=== PATIENT | female | born 1995 | race Caucasian/White ===

== ENCOUNTER 2017-02-24 08:01 | Emergency (ER) | payer OTHER ==
[2017-02-24 08:09] VITALS: BP 125/87
--- NOTE | 2017-02-24 08:58 | ERNOTE ---
Integumentary HPI - General Presenting Symptoms: rash Time Seen by Provider: 02/24/17 08:49 Source: patient Exam Limitations: no limitations - Immun/Allergies/Home Medications Immunizations: IMMUNIZATION HX Immunizations Up to Date Yes History of Influenza Vaccine No Allergies/Adverse Reactions: Allergies Allergy/AdvReac Type Severity Reaction Status Date / Time No Known Allergies Allergy Verified 02/24/17 08:09 Home Medications: HOME MEDICATIONS Control 05/31/16 [Last Taken Unknown] Famotidine [Pepcid] 20 mg PO BID #10 tablet 02/24/17 [Last Taken Unknown] hydrOXYzine PAMOATE [Vistaril] 25 mg PO Q4H PRN #20 cap 02/24/17 [Last Taken Unknown] predniSONE [Deltasone] 20 mg PO BID #10 tablet 02/24/17 [Last Taken Unknown] - History of Present Illness Narrative: Patient was mowing her yard and feels like she possibly got into something. She now complains of a rash behind her ears on her wrists and behind her knees that is very itchy. She rates the symptoms as at least moderate in intensity. Location: Reports: generalized Quality: Reports: itching, painful Severity: moderate Exposure: Reports: no cause identified - possible poison jazmine or poison oak Modifying Factors - (Improves): Reports: antihistamine Associated Symptoms: Reports: denies symptoms Review of Systems - Review of Systems Constitutional: Present: no symptoms reported, See HPI EYE: Present: no symptoms reported ENT: Present: no symptoms reported Respiratory: Present: no symptoms reported Cardiology: Present: no symptoms reported Gastrointestinal/Abdominal: Present: no symptoms reported Genitourinary: Present: no symptoms reported Musculoskeletal: Present: no symptoms reported Skin: Present: See HPI Neurological: Present: no symptoms reported Endocrine: Present: no symptoms reported Hematologic/Lymphatic: Present: no symptoms reported Psych: Present: no symptoms reported - Patient's Past Medical History Patient History - Medical: No pertinent hx Patient History - Cardiac/Respiratory: No pertinent hx Patient History - Cancer: No Hx of Cancer Patient History - Surgical Procedures: No surgical history LMP (Calendar): 05/28/16 - Social History Living Situations: home Alcohol Use: none Drug Use: none - Immunizations Immunizations Up to Date: Yes History of Influenza Vaccine: No Physical Exam - Physical Exam General Appearance: Present: wd/wn, alert, moderate distress Eye Exam: Normal inspection: bilateral, PERRL: bilateral Ears, Nose, Throat: Present: normal ENT inspection, H, normal pharynx Neck: Present: normal inspection, nontender Respiratory: Present: no respiratory distress, normal breath sounds, no accessory muscle use, chest nontender, lungs clear Cardiovascular/Chest: Present: regular rate, rhythm, no murmur, normal peripheral pulses Gastrointestinal/Abdominal: Present: normal bowel sounds, nontender, nondistended, soft, no organomegaly Rectal Exam: Present: deferred Back Exam: Present: normal inspection, normal range of motion Extremity Exam: Present: normal inspection, non-tender, no edema, normal range of motion Neurological Exam: Present: alert, oriented, normal mood/affect Skin Exam: Present: warm/dry, skin rash - she presents with urticarial-like rash behind both ears by both knees and on both wrists Lymphatic Exam: Present: no adenopathy ED Progress - Vital Signs Patient's Vital Signs:: I have reviewed the patient's vital signs. Vital Signs: Vital Signs 02/24/17 08:06 Temperature 36.1 C L Pulse Rate 82 Respiratory 12 Rate Blood Pressure 125/87 O2 Sat by Pulse 96 Oximetry - Progress/Reassessment Chief Complaint: Rash Plan - Plan Plan: I suspect that the patient get into some form of contact dermatitis, likely she aerosolized something while she was mowing. Patient be started on steroids and antihistamines in the form of Vistaril and Pepcid and she will wash all of her work clothes as she might be continuing to contaminated herself from those. Departure Clinical Impression: Contact dermatitis Qualifiers: Contact dermatitis type: unspecified Contact dermatitis trigger: unspecified trigger Qualified Code(s): L25.9 - Unspecified contact dermatitis, unspecified cause - Departure Disposition: Home self-care Condition: Good Instructions: Contact Dermatitis, [id number] Prescriptions: Famotidine [Pepcid] 20 mg PO BID #10 tablet hydrOXYzine PAMOATE [Vistaril] 25 mg PO Q4H PRN #20 cap PRN Reason: Itching predniSONE [Deltasone] 20 mg PO BID #10 tablet
== END 2017-02-24 09:01 | disposition home or self-care (01) ==
LOC: ER 08:01
DX: L25.9 Unspecified contact dermatitis, unspecified cause (principal)